=== PATIENT | female | born 1980 | race Caucasian/White ===

== ENCOUNTER 2018-09-06 06:30 | Day surgery (SDC) | payer OTHER ==
[~2018-09-06 06:30] MED LIST: KETO10TA2 PO
== END 2018-09-06 10:50 | disposition home or self-care (01) ==
LOC: AMB-ENDOS 06:30
DX: N80.5 Endometriosis of intestine (principal)

== ENCOUNTER 2020-08-26 | Outpatient (CLI) | payer OTHER | END 2020-08-26 00:01 | disposition home or self-care (01) | LOC: PPH VACUNA | DX: Z23 Encounter for immunization (principal) ==

== ENCOUNTER 2024-03-24 17:07 | Emergency (ER) | payer OTHER ==
[~2024-03-24] VITALS: Ht 160 cm; Wt 72.6 kg
[2024-03-24] MEDS ORDERED: TOPROL XL25 M1 PO (17:24)
[2024-03-24] MEDS ORDERED: KETOROLAC TROMETHAMINE 30 MG VIAL IM STA (18:19)
[2024-03-24] MEDS ORDERED: ORPHENADRINE CITRATE 30 MG/ML AMPUL IM STA (18:19)
[2024-03-24] MEDS ORDERED: KETOROLAC TROMETHAMINE 30 MG VIAL ONE (18:29)
[2024-03-24] MEDS ORDERED: ORPHENADRINE CITRATE 30 MG/ML AMPUL ONE (18:29)
[2024-03-24 18:52] LABS: HEMATOCRIT 36.5 % (36.0-45.00); HEMOGLOBIN 12.4 g/dL (12.0-15.00); MEAN CELL VOLUME 91.2 fL (80.00-100.00); MEAN CORPUSCULAR HEMOGLOBIN 30.9 pg (27.00-32.0); MEAN CORPUSCULAR HGB CONC 33.9 g/dl (32.0-36.0); PLATELET COUNT 226 K/uL (150-450); RED BLOOD COUNT 4.01 M/uL (4.00-6.00); RED CELL DISTRIBUTION WIDTH 13.6 % (11.5-14.5)
[2024-03-24 19:11] LABS: CALCIUM 9.4 mg/dL (8.5-10.1); CREATININE SERUM 0.74 mg/dL (0.55-1.02); GFR 85.65; POTASSIUM 3.94 mEq/L (3.5-5.1)
[2024-03-24 20:54] LABS: PH,URINE 5.5 (5.0-8.0); URINE APPEARANCE Clear; URINE BILIRRUBIN Negative (NEGATIVE); URINE BLOOD Large; URINE COLOR Orange; URINE GLUCOSE Negative (NEGATIVE); URINE LEUKOCYTE Moderate; URINE NITRATE Negative; URINE PROTEIN 30 (NEGATIVE); URINE UROBILINOGEN 0.2 E.U./dl
[2024-03-24 21:04] LABS: URINE EPITHELIAL CELLS 23.3 uL (0.0-38.8); URINE RBC 621.8 uL (0.0-20.8); URINE WBC 157.4 uL (0.0-23.2)
== END 2024-03-24 21:57 | disposition home or self-care (01) ==
LOC: ER 17:08
PROVIDERS: General Practice
DX: M54.89 Other dorsalgia (principal); Z91.018 Allergy to other foods; Z88.8 Allergy status to other drugs, medicaments and biological substances